=== PATIENT | female | born 1980 | race American Indian/Alaskan Native ===

== ENCOUNTER 2016-12-05 00:04 | Emergency (ER) | payer MEDICAID ==
[2016-12-05] MEDS ORDERED: NACL 0.9% 1000 ML 1,000 ML IV ONE (00:33)
[2016-12-05] MEDS ORDERED: ZOFRAN IV ONE (00:33)
[2016-12-05] MEDS ORDERED: MORPHINE IV ONE (00:33)
[2016-12-05 01:24] LABS: Basophils % (Auto) 0.6 % (0.0-1.8); Eosinophils % (Auto) 1.1 % (0.0-4.3); Hematocrit 27.8 % (30.3-42.9); Hemoglobin 8.9 gm/dl (10.1-14.3); Mean Corpuscular HGB Conc 32 % (30-34); Mean Corpuscular Volume 80 fl (79-97); Platelet Count 234 K/mm3 (140-440); Red Blood Count 3.48 M/mm3 (3.65-5.03); Red Cell Distribution Width 13.6 % (13.2-15.2); White Blood Count 8.5 K/mm3 (4.5-11.0)
--- NOTE | 2016-12-05 01:27 | Emergency Department Report ---
HPI - General Chief Complaint: Vaginal Bleeding Time Seen by Provider: 12/05/16 00:51 - HPI HPI: The patient is a 36 yo female presents for evaluation of abdominal pain. The patient is a at 8 weeks EGA. She complains of constant abdominal pain since 11 AM this morning, approximately 12 hours prior to my evaluation, constant since onset, 8/10 in severity, crampy in quality. She also reports associated vaginal bleeding. She shares that she was informed by her [facility] 1 week ago that she may undergo miscarriage. ED Past Medical Hx - Past Medical History Hx Hypertension: Yes Hx Diabetes: Yes (type 2) - Surgical History Past Surgical History?: Yes Additional Surgical History: gallbladder, csection - Social History Smoking Status: Never Smoker Substance Use Type: None - Medications Home Medications: Home Medications Medication Instructions Recorded Confirmed Last Taken Type Labetalol 200 mg PO BID 12/05/16 12/05/16 Unknown History glipiZIDE 5 mg PO BID 12/05/16 12/05/16 Unknown History metFORMIN 1,000 mg PO BID 12/05/16 12/05/16 Unknown History ED Review of Systems ROS: Stated complaint: VAGINAL BLEEDING Other details as noted in HPI Constitutional: denies: fever ENT: denies: throat or neck pain Respiratory: denies: cough, shortness of breath Cardiovascular: denies: chest pain Endocrine: denies unexplained weight loss or gain Gastrointestinal: reports abdominal pain, nausea Genitourinary: denies: dysuria Musculoskeletal: denies: leg swelling Skin: denies: rash Neurological: denies: headache Hematological/Lymphatic: denies: easy bleeding or easy bruising Psych: denies sadness or hopelessness Physical Exam - Physical Exam Vital Signs: Vital Signs 12/05/16 00:36 Temperature 98 F Pulse Rate 94 H Respiratory 16 Rate Blood Pressure 96/57 O2 Sat by Pulse 99 Oximetry Physical Exam: General: well-nourished, well-developed, no acute distress Head: Normocephalic, atraumatic Eyes: normal sclera ENT: Mucous membranes are pale and dry Neck: trachea midline, neck supple, No neck stiffness, no cervical adenopathy Respiratory: Breath sounds equal bilaterally, no wheezing, rales, or rhonchi Cardio: S1 and S2 present, no murmurs, rubs, gallops, capillary refill is delayed Abdomen: Normoactive bowel sounds, soft abdomen, suprapubic and periumbilical tenderness to palpation present, no rigidity, no guarding or rebound tenderness Chest WALL/Back: No tenderness to palpation of the chest wall, no CVA tenderness with percussion Musc: No pitting edema Skin: No rash Neuro: no facial drooping, normal speech Psych: Normal affect ED Course Vital Signs 12/05/16 00:36 Temperature 98 F Pulse Rate 94 H Respiratory 16 Rate Blood Pressure 96/57 O2 Sat by Pulse 99 Oximetry ED Medical Decision Making - Lab Data Result diagrams: 12/05/16 00:30 12/05/16 00:30 - Medical Decision Making The patient was seen and examined by myself. The patient is placed on a shelter monitor and continuous pulse ox. On initial evaluation, the patient was found to be in no distress. Evaluation orders are placed. IV access is established and the patient is given 1 L normal saline fluid bolus and Zofran for nausea, and IV morphine for pain Lab results were non-concerning including WBC, hemoglobin, hematocrit, electrolytes, renal function, LFTs, lipase, and urinalysis. US of the pelvis is ordered. Ultrasound is pending. The patient signed off to the curator of photography and prints ED physician Dr. Ramsey, who agrees to follow-up on pending ultrasound results and ultimate disposition. Critical care attestation.: If time is entered above; I have spent that time in minutes in the direct care of this critically ill patient, excluding procedure time. ED Disposition Clinical Impression: Threatened miscarriage in early , Dehydration Abdominal pain during Qualifiers: Trimester: first trimester Qualified Code(s): O26.891 - Other specified related conditions, first trimester; R10.9 - Unspecified abdominal pain Anemia Qualifiers: Anemia type: unspecified type Qualified Code(s): D64.9 - Anemia, unspecified Disposition: DISCHARGED TO HOME OR SELFCARE Is pt being admited?: No Does the pt Need Aspirin: No Condition: Stable Referrals: [facility] [Primary Care Provider] - 3-5 Days [facility] [Provider Group] - 3-5 Days Time of Disposition: 01:26
[2016-12-05 01:33] LABS: Mean Corpuscular Hemoglobin 26 pg (28-32)
[2016-12-05 01:36] LABS: INR 1.13 (0.87-1.13); Partial Thromboplastin Time 24.7 Sec. (24.2-36.6)
[2016-12-05 01:37] LABS: Alanine Aminotransferase 25 units/L (7-56); Albumin 3.5 g/dL (3.9-5); Albumin/Globulin Ratio 1.5 %; Alkaline Phosphatase 75 units/L (35-129); Anion Gap 17 mmol/L; Bilirubin,Total < 0.20 mg/dL (0.1-1.2); Blood Urea Nitrogen 7 mg/dL (7-17); Calcium 8.5 mg/dL (8.4-10.2); Carbon Dioxide 22 mmol/L (22-30); Glucose 356 mg/dL (65-100); Potassium 4.4 mmol/L (3.6-5.0); Sodium 134 mmol/L (137-145); Total Protein 5.9 g/dL (6.3-8.2)
--- NOTE | 2016-12-05 02:44 | Ultrasound Report ---
FINAL REPORT EXAM: US OB \T\lt; = 14 WEEKS FETUS HISTORY: vaginal bleeding, TECHNIQUE: Several real-time grayscale and color Doppler images were obtained. Transabdominal and transvaginal exam. FINDINGS: The uterus measures 9.6 x 5.5 x 5.7 centimeters. No IUP or adnexal masses are demonstrated. Endometrial stripe is thickened measuring up to 2.3 centimeters in thickness findings are concerning for passing hemorrhagic clot/miscarriage in progress. No adnexal masses. Left ovary measures 5.4 x 4.4 x 4.6 centimeters. Right ovary measures 3.8 x 1.6 x 2.2 centimeters. Within the left ovary there is a 4.2 x 3.1 x 2.9 centimeter mildly complex cystic structure which may reflect corpus luteum. 2.5 centimeter cyst is present adjacent to this. 1.9 centimeter simple appearing cystic structure in the left ovary. IMPRESSION: Findings most concerning for miscarriage in progress. Correlation with serial beta HCGs and followup exam is suggested. No adnexal masses are demonstrated. Cystic changes the bilateral ovaries. Largest complex cyst in the right ovary may reflect corpus luteum.
--- NOTE | 2016-12-05 02:44 | Ultrasound Report ---
FINAL REPORT EXAM: US OB TRANSVAGINAL HISTORY: vaginal bleeding, COMPARISON: None available. TECHNIQUE: Several real-time grayscale and color Doppler images were obtained. Transabdominal and transvaginal exam. FINDINGS: The uterus measures 9.6 x 5.5 x 5.7 centimeters. No IUP or adnexal masses are demonstrated. Endometrial stripe is thickened measuring up to 2.3 centimeters in thickness findings are concerning for passing hemorrhagic clot/miscarriage in progress. No adnexal masses. Left ovary measures 5.4 x 4.4 x 4.6 centimeters. Right ovary measures 3.8 x 1.6 x 2.2 centimeters. Within the left ovary there is a 4.2 x 3.1 x 2.9 centimeter mildly complex cystic structure which may reflect corpus luteum. 2.5 centimeter cyst is present adjacent to this. 1.9 centimeter simple appearing cystic structure in the left ovary. IMPRESSION: Findings most concerning for miscarriage in progress. Correlation with serial beta HCGs and followup exam is suggested. No adnexal masses are demonstrated. Cystic changes the bilateral ovaries. Largest complex cyst in the right ovary may reflect corpus luteum.
[2016-12-05] MEDS ORDERED: TORADOL IV ONE (03:34)
--- NOTE | 2016-12-05 03:36 | Event Note ---
Date: 12/05/16 3:35 AM Patient signed out to me to follow up ultrasound results. Ultrasound shows that the patient has currently going through the process of an . Patient's bleeding has mostly stopped and is now at spotting. She is having some cramping pains of Toradol with IV was ordered. I explained the results to the patient that she is likely just completing her spontaneous . Hemoglobin level is at 8.9 and expected not to drop significantly given that bleeding has stopped. We'll discharge home with [facility] follow-up.
[2016-12-05 04:30] VITALS: BP 98/60
== END 2016-12-05 04:30 | disposition home or self-care (01) ==
LOC: ED 00:04
DX: O20.0 Threatened abortion (principal); E86.0 Dehydration; R10.9 Unspecified abdominal pain; D64.9 Anemia, unspecified; I10 Essential (primary) hypertension; E11.9 Type 2 diabetes mellitus without complications; Z3A.08 8 weeks gestation of pregnancy
CPT/HCPCS: 36415; 76801; 76817; 80053; 84702; 85025; 85610; 85730; 86850; 86900; 86901; 96361; 96374; 96375; 99285; J1885; J2270; J2405; J7030